=== PATIENT | female | born 1960 | race Caucasian/White ===

== ENCOUNTER 2019-08-19 17:09 | Emergency (ER) | payer OTHER ==
[~2019-08-19] VITALS: Ht 170.2 cm; Wt 63.4 kg
[2019-08-19 17:09] VITALS: BP 152/89
[~2019-08-19 17:09] MED LIST: ALBU2.5V8 IH; BUDE10.2 IH; DEXL60CA2 PO; DIPH1TAB PO; DULO60CA6 PO; ESZO3TAB28 PO; FENO160T PO; FURO80TA3 PO; GABA-586 PO; GLIM2TAB7 PO; IPRA3AMP23 IH; IPRA4AER IH; MONT10TA80 PO; OXYB5TAB10 PO; RIVA20TA2 PO; ROFL500T7 PO; TRAM100T12 PO
--- NOTE | 2019-08-19 17:28 | PHYS DOC ---
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 Patient states her home health nurse told her to come to the emergency department to check and see if this was another blood clot. There is been no chest pain shortness of breath dyspnea on exertion. She does have chronic shortness of breath secondary to excessive tobacco abuse. [] Review of Systems: Review of Systems: Constitutional: Denies fever or chills Eyes: Denies change in visual acuity HENT: Denies nasal congestion or sore throat Respiratory: Denies cough or shortness of breath Cardiovascular: Denies chest pain or edema GI: Denies abdominal pain, nausea, vomiting, bloody stools or diarrhea : Denies dysuria Musculoskeletal: Per HPI Integument: Denies rash Neurologic: Denies headache, focal weakness or sensory changes Endocrine: Denies polyuria or polydipsia Lymphatic: Denies swollen glands Psychiatric: Denies depression or anxiety Heart Score: Risk Factors: Risk Factors: DM, Current or recent (<one month) smoker, HTN, HLP, family history of CAD, obesity. Risk Scores: Score 0 - 3: 2.5% MACE over next 6 weeks - Discharge Home Score 4 - 6: 20.3% MACE over next 6 weeks - Admit for Clinical Observation Score 7 - 10: 72.7% MACE over next 6 weeks - Early Invasive Strategies Allergies: Allergies: Allergies Coded Allergies Type Severity Reaction Last Updated Verified chlorpromazine HCl Allergy Severe Psychotic 04/20/13 Yes Tetracycline Allergy Intermediate Nail beds turned blue 04/20/13 Yes adhesive Allergy Intermediate skin irritation 04/20/13 Yes codeine Allergy Intermediate Nausea/swelling 04/20/13 Yes diazepam Allergy Intermediate increased sleepiness 04/20/13 Yes hydrocodone Allergy Intermediate Nausea/swelling 04/20/13 Yes latex Allergy Intermediate swelling and itching 04/20/13 Yes morphine Allergy Intermediate Lips turned blue/swelling 04/20/13 Yes sumatriptan succinate Allergy Intermediate swelling 04/20/13 Yes Physical Exam: PE: Constitutional: Well developed, well nourished, no acute distress, non-toxic appearance, smells strongly of tobacco smoke. [] HENT: Normocephalic, atraumatic, bilateral external ears normal, oropharynx moist, no oral exudates, nose normal. [] Eyes: PERRLA, EOMI, conjunctiva normal, no discharge. [] Neck: Normal range of motion, no tenderness, supple, no stridor. [] Cardiovascular:Heart rate regular rhythm, no murmur [] Lungs & Thorax: Bilateral breath sounds clear to auscultation [] Abdomen: Bowel sounds normal, soft, no tenderness, no masses, no pulsatile mas ses. [] : She has a Floyd in place Skin: Warm, dry, no erythema, no rash. [] Back: No tenderness, no CVA tenderness. [] Extremities: I do not appreciate any significant swelling in her left lower extremity [] Neurologic: Alert and oriented X 3, normal motor function, normal sensory function, no focal deficits noted. [] Psychologic: Affect normal, judgement normal, mood normal. [] EKG: EKG: [] Radiology/Procedures: Radiology/Procedures: [] Course & Med Decision Making: Course & Med Decision Making Pertinent Labs and Imaging studies reviewed. (See chart for details) [ED course: Evaluation reveals a 58-year-old female with a history of DVT. She is on Xarelto and has an IVC filter in place I explained to her that she is already being treated for DVTs if indeed she had another one. There is no indication to recheck her for such today. I have encouraged her to follow with her primary care physician.] Wicho Disclaimer: Wicho Disclaimer: This electronic medical record was generated, in whole or in part, using a voice recognition dictation system. Departure Departure: Impression: Primary Impression: Swelling of lower extremity Disposition: 01 HOME/RESIDENCE PRIOR TO ADM Condition: STABLE Referrals: KELSEY VAZQUEZ MD (PCP) Patient Instructions: Peripheral Edema Additional Instructions: Follow with your primary care physician this week for recheck. Return to the emergency department with any new or concerning symptoms. Justification of Admission: Justification of Admission: Justification of Admission Dx: No CYNTHIA PEREZ DO Aug 19, 2019 17:28
== END 2019-08-19 17:30 | disposition home or self-care (01) ==
LOC: ER 17:09
DX: R22.42 Localized swelling, mass and lump, left lower limb (principal); Z86.718 Personal history of other venous thrombosis and embolism; Z79.01 Long term (current) use of anticoagulants; Z88.1 Allergy status to other antibiotic agents; Z88.5 Allergy status to narcotic agent; Z88.8 Allergy status to other drugs, medicaments and biological substances; Z91.040 Latex allergy status
CPT/HCPCS: 99281; 99284

== ENCOUNTER 2020-01-25 14:29 | Emergency (ER) | payer OTHER ==
[~2020-01-25] VITALS: Ht 170.2 cm; Wt 63.4 kg
[2020-01-25 15:14] VITALS: BP 115/71
--- NOTE | 2020-01-25 15:20 | PHYS DOC ---
Past History Past Medical History: CHF, COPD, High Cholesterol, Seizure, Vascular Disease Additional Past Medical Histor: DDD, factor 5 Past Surgical History: Cholecystectomy, Hysterectomy Alcohol Use: None Adult General Chief Complaint Chief Complaint: FOOT INJURY PAIN HPI HPI Patient is a 59-year-old female with history of MS, wheelchair-bound, presents to the emergency room for evaluation of right foot and ankle injury. She reports yesterday an elevator door closed on her foot. She does not have much feeling in her lower extremities. She reports noticed more swelling today than normal. Review of Systems Review of Systems Constitutional: Denies fever or chills [] Eyes: Denies change in visual acuity, redness, or eye pain [] HENT: Denies nasal congestion or sore throat [] Respiratory: Denies cough or shortness of breath [] Cardiovascular: No additional information not addressed in HPI [] GI: Denies abdominal pain, nausea, vomiting, bloody stools or diarrhea [] : Denies dysuria or hematuria [] Musculoskeletal:rt ankle and foot swelling[] Integument: Denies rash or skin lesions [] Neurologic: Denies headache, focal weakness or sensory changes [] Endocrine: Denies polyuria or polydipsia [] All other systems were reviewed and found to be within normal limits, except as documented in this note. Allergies Allergies Allergies Coded Allergies Type Severity Reaction Last Updated Verified chlorpromazine HCl Allergy Severe Psychotic 04/20/13 Yes adhesive Allergy Intermediate skin irritation 04/20/13 Yes codeine Allergy Intermediate Nausea/swelling 04/20/13 Yes diazepam Allergy Intermediate increased sleepiness 04/20/13 Yes hydrocodone Allergy Intermediate Nausea/swelling 04/20/13 Yes latex Allergy Intermediate swelling and itching 04/20/13 Yes morphine Allergy Intermediate Lips turned blue/swelling 04/20/13 Yes sumatriptan succinate Allergy Intermediate swelling 04/20/13 Yes tetracycline Allergy Intermediate Nail beds turned blue 04/20/13 Yes Physical Exam Physical Exam Constitutional: Well developed, well nourished, no acute distress, non-toxic appearance. [] HENT: Normocephalic, atraumatic, bilateral external ears normal, oropharynx moist, no oral exudates, nose normal. [] Eyes: PERRLA, EOMI, conjunctiva normal, no discharge. [] Skin: Warm, dry, no erythema. [] Extremities: No tenderness, no cyanosis, no clubbing,rt ankle swollen medially and laterally, minimal swelling to diffuse rt foot, pulses intact. [] Neurologic: Alert and oriented X 3, . [] Psychologic: Affect normal, judgement normal, mood normal. [] EKG EKG [] Radiology/Procedures Radiology/Procedures [] Impressions: PROCEDURE: FOOT RIGHT 3V Right ankle x-rays 3 views HISTORY: Injury, pain after shut in door FINDINGS: Mild calf soft tissue edema. There is marked medial ankle soft tissue swelling. Bony demineralization likely osteoporosis. No fracture evident. No dislocation. The talus ossicle lesion. IMPRESSION: No acute osseous injury of the ankle. Medial ankle soft tissue swelling. Right foot x-rays 3 views HISTORY: Injury, pain after shut in door FINDINGS: Bony demineralization likely osteoporosis. Irregularity at the medial cortex at the base of the great toe proximal phalanx at the MTP joint on the AP and oblique views raising suspicion of an acute traumatic fracture. Dorsal foot soft tissue swelling. No dislocation. IMPRESSION: Suspected acute traumatic nondisplaced fracture at the base of the great toe proximal phalanx. Dorsal foot soft tissue swelling. See above. Electronically signed by: Sreekanth Ibarra MD (01/25/2020 3:55 PM) [facility] [place] Heart Score Risk Factors: Risk Factors: DM, Current or recent (<one month) smoker, HTN, HLP, family history of CAD, obesity. Risk Scores: Risk Factors: DM, Current or recent (<one month) smoker, HTN, HLP, family history of CAD, obesity. Course & Med Decision Making Course & Med Decision Making Pertinent Labs and Imaging studies reviewed. (See chart for details) [pts rt great toe wicho taped to 2nd toe, she is wheelchair bound, will f/u c orthopedic in 5-7 days] Dragon Disclaimer Dragon Disclaimer This electronic medical record was generated, in whole or in part, using a voice recognition dictation system. Departure Departure: Impression: Primary Impression: Fracture of phalanx of toe Condition: GOOD Referrals: RONNELL BOLAÑOS (PCP) MARK OSPINA MD Patient Instructions: Toe Fracture, [id number] Problem Qualifiers Primary Impression: Fracture of phalanx of toe Encounter type: initial encounter Toe: great toe Fracture type: closed Phalanx: proximal Fracture alignment: nondisplaced Laterality: right Qualified Codes: S92.414A - Nondisplaced fracture of proximal phalanx of right great toe, initial encounter for closed fracture NADYA TAFOYA SENIOR ENVIRONMENTAL CONSULTANT Jan 25, 2020 15:20
--- NOTE | 2020-01-25 15:58 | RAD ---
Right ankle x-rays 3 views HISTORY: Injury, pain after shut in door FINDINGS: Mild calf soft tissue edema. There is marked medial ankle soft tissue swelling. Bony demineralization likely osteoporosis. No fracture evident. No dislocation. The talus ossicle lesion. IMPRESSION: No acute osseous injury of the ankle. Medial ankle soft tissue swelling. Right foot x-rays 3 views HISTORY: Injury, pain after shut in door FINDINGS: Bony demineralization likely osteoporosis. Irregularity at the medial cortex at the base of the great toe proximal phalanx at the MTP joint on the AP and oblique views raising suspicion of an acute traumatic fracture. Dorsal foot soft tissue swelling. No dislocation. IMPRESSION: Suspected acute traumatic nondisplaced fracture at the base of the great toe proximal phalanx. Dorsal foot soft tissue swelling. See above. Electronically signed by: Sreekanth Ibarra MD (01/25/2020 3:55 PM) JUSTIN
== END 2020-01-25 16:28 | disposition home or self-care (01) ==
LOC: ER 14:29
DX: S92.414A Nondisplaced fracture of proximal phalanx of right great toe, initial encounter for closed fracture (principal); I50.9 Heart failure, unspecified; J44.9 Chronic obstructive pulmonary disease, unspecified; E78.00 Pure hypercholesterolemia, unspecified; G35 Multiple sclerosis; Z88.8 Allergy status to other drugs, medicaments and biological substances; Z88.5 Allergy status to narcotic agent; Z91.040 Latex allergy status; Z88.1 Allergy status to other antibiotic agents; W23.0XXA Caught, crushed, jammed, or pinched between moving objects, initial encounter; Y93.89 Activity, other specified; Y92.89 Other specified places as the place of occurrence of the external cause; Y99.8 Other external cause status
CPT/HCPCS: 73610; 73630; 99284

== ENCOUNTER 2020-08-03 19:31 | Emergency (ER) | payer OTHER ==
[~2020-08-03] VITALS: Ht 167.6 cm; Wt 68.2 kg
[2020-08-03 19:45] VITALS: BP 111/68
[2020-08-03] MEDS ORDERED: LIDOCAINE 2% 20 ML VIAL. IJ ONE (21:15)
--- NOTE | 2020-08-06 19:13 | PHYS DOC ---
Past History Past Medical History: CHF, COPD, High Cholesterol, Seizure, Vascular Disease Additional Past Medical Histor: DDD, factor 5 Past Surgical History: Cholecystectomy, Hysterectomy Smoking: Cigarettes Alcohol Use: Occasionally General Adult EDM: Chief Complaint: FOOT INJURY PAIN HPI: HPI: ". I had a leg spasms.. and accident kicked bottom of tongue door and cut my big toe on the right.." Patient is a 59 year old female who presents with above history and avulsion type injury to the pad side of the first right toe. Skin flap is avascular. No other injury reported. No pain on loading of bony structures. Patient with questioning procedure there is some deep bleeding. Patient has significant medical history for degenerative joint disease factor V, deconditioning, DDD, neuropathy. Patient normally follows with primary care Dr. Elliott. Patient states her tetanus is current. Review of Systems: Review of Systems: Constitutional: Denies fever or chills Eyes: Denies change in visual acuity HENT: Denies nasal congestion or sore throat Respiratory: Denies cough or shortness of breath Cardiovascular: Denies chest pain or edema GI: Denies abdominal pain, nausea, vomiting, bloody stools or diarrhea : Denies dysuria Musculoskeletal: Denies back pain or joint pain Integument: Denies rash. Patient complains of avulsion laceration to pad of first right toe Neurologic: Denies headache, focal weakness or sensory changes Endocrine: Denies polyuria or polydipsia Lymphatic: Denies swollen glands Psychiatric: Denies depression or anxiety Family History: Family History: Noncontributory to presentation Current Medications: Current Meds: Current Medications Medications (Trade) Dose Ordered Sig/[facility] Start Time Stop Time Status Last Admin Dose Admin Lidocaine HCl 20 ml 1X ONCE 08/03/20 21:15 08/03/20 21:16 DC 08/03/20 21:15 20 ML Allergies: Allergies: Allergies Coded Allergies Type Severity Reaction Last Updated Verified adhesive Allergy Intermediate skin irritation 04/20/13 Yes codeine Allergy Intermediate Nausea/swelling 04/20/13 Yes hydrocodone Allergy Intermediate Nausea/swelling 04/20/13 Yes latex Allergy Intermediate swelling and itching 04/20/13 Yes morphine Allergy Intermediate Lips turned blue/swelling 04/20/13 Yes sumatriptan succinate Allergy Intermediate swelling 04/20/13 Yes chlorpromazine HCl Adverse Reaction Severe Psychotic 08/03/20 Yes diazepam Adverse Reaction Intermediate increased sleepiness 08/03/20 Yes tetracycline Adverse Reaction Intermediate Nail beds turned blue 08/03/20 Yes Physical Exam: PE: Constitutional: Moderate acute distress, non-toxic appearance. [] HENT: Normocephalic, atraumatic, bilateral external ears normal, oropharynx moist, no oral exudates, nose normal. [] Eyes: PERRLA, EOMI, conjunctiva normal, no discharge. [] Neck: Normal range of motion, no tenderness, supple, no stridor. [] Cardiovascular:Heart rate regular rhythm, no murmur [] Lungs & Thorax: Bilateral breath sounds to apex scattered wheezes auscultation [] Abdomen: Bowel sounds normal, soft, no tenderness, no masses, no pulsatile masses. Old surgical scars Skin: Warm, dry, no erythema, no rash. [] Back: No tenderness, no CVA tenderness. [] Extremities: No tenderness, no cyanosis, no clubbing, ROM intact, no edema. [] Injury to right first toe as per HPI Neurologic: Alert and oriented X 3, patient reports no new, focal deficits noted. Tremors and spasms Psychologic: Affect anxious, judgement normal, mood normal. [] Current Patient Data: Vital Signs: Vital Signs Date Time Temp Pulse Resp B/P (MAP) Pulse Ox O2 Delivery O2 Flow Rate FiO2 08/03/20 19:45 97.7 80 18 111/68 (82) 96 Room Air EKG: EKG: [] Radiology/Procedures: Radiology/Procedures: [] Heart Score: C/O Chest Pain: N/A Risk Factors: Risk Factors: DM, Current or recent (<one month) smoker, HTN, HLP, family history of CAD, obesity. Risk Scores: Score 0 - 3: 2.5% MACE over next 6 weeks - Discharge Home Score 4 - 6: 20.3% MACE over next 6 weeks - Admit for Clinical Observation Score 7 - 10: 72.7% MACE over next 6 weeks - Early Invasive Strategies Course & Med Decision Making: Course & Med Decision Making Pertinent Labs and Imaging studies reviewed. (See chart for details) Procedure note- Laceration repair-laceration cleaned with normal saline and Betadine.. The 2 x 2 centimeter avulsion flap right first toe pad is avascular. Skin flap is attached by a very small area of tissue and skin. Irrigated laceration with normal saline. Did a digital block with 2% lidocaine. Reirrigated toe and range of motion. Reattached a vascular flap with a running stitch x6, and 6 simple sutures of 4-0 Vicryl. Total sutures 12. antibiotic ointment with dressing applied. Advised patient will most likely you lose the avascular flap but reattached to help with bleeding control and act as somewhat skin graft to toe. Must monitor closely for infection. Wear only white socks. Keep laceration clean and dry. Follow-up primary care. Return if any concerns. Advised patient sutures do not need to be removed they will dissolve. Impression: 1. 2 x 2 centimeter avulsion laceration to right first toe [] Dragon Disclaimer: Dragon Disclaimer: This electronic medical record was generated, in whole or in part, using a voice recognition dictation system. Departure Departure: Impression: Primary Impression: Avulsion, skin Disposition: HOME / SELF CARE / HOMELESS Condition: GUARDED Patient Instructions: Skin Tear Care, [id number] Additional Instructions: You had avulsion of skin pad of Rt. lst toe. You will most likely have loss of this avascular tissue. It was sutured back on with Vicryl running stitch to cover exposed tissue and aid in hemostasis. Keep area clean and dry. Change dressing 3 days. Wear only white socks. Monitor closely for infection. Sutures do not need to be removed. Dragon Disclaimer This chart was dictated in whole or in part using Voice Recognition software in a busy, high-work load, and often noisy Emergency Department environment. It may contain unintended and wholly unrecognized errors or omissions. MARK GARCIA MD Aug 06, 2020 19:13
== END 2020-08-03 22:43 | disposition home or self-care (01) ==
LOC: ER 19:31
DX: S91.111A Laceration without foreign body of right great toe without damage to nail, initial encounter (principal); J44.9 Chronic obstructive pulmonary disease, unspecified; E78.5 Hyperlipidemia, unspecified; F17.210 Nicotine dependence, cigarettes, uncomplicated; Z90.49 Acquired absence of other specified parts of digestive tract; Z90.710 Acquired absence of both cervix and uterus; W26.8XXA Contact with other sharp object(s), not elsewhere classified, initial encounter; Y93.89 Activity, other specified; Y92.89 Other specified places as the place of occurrence of the external cause; Y99.8 Other external cause status
CPT/HCPCS: 12002; 99282; J2001; 99283-25

== ENCOUNTER 2020-09-25 23:07 | Emergency (ER) | payer OTHER ==
[~2020-09-25] VITALS: Ht 167.6 cm; Wt 68.2 kg
[2020-09-25 23:12] VITALS: BP 114/73
--- NOTE | 2020-09-25 23:22 | PHYS DOC ---
Past History Past Medical History: CHF, COPD, High Cholesterol, Seizure, Vascular Disease Additional Past Medical Histor: DDD, factor 5 Past Surgical History: Cholecystectomy, Hysterectomy Smoking: Cigarettes Alcohol Use: Occasionally General Adult EDM: Chief Complaint: TOE PROBLEM HPI: HPI: " I caught the door on my Rt toes yesterday... and I did the same thing today on my Lt toe.. big toe... ".. Patient is a 60 year old female who presents with above hx and complaints of injury to toes bilateral. Has contusion, abrasion, laceration to toes on both feet by same mechanism of injury. Pt. has advises that injury occurs when she is pushing open the door to her apartment. Patient's toes on the left foot toes injuried tonight. Toes on Rt. foot injury occured yesterday. Pt. does not remember last tetanus vaccination. The patient has significant history for MS. Patient also had a episodes of periodic diarrhea, nausea, vomiting, COPD exacerbation, bronchitis, urinary retention which was treated with a suprapubic catheter. Patient has history of hyperlipidemia, chronic pain, fibromyalgia, tobacco abuse, and deconditioning. Review of Systems: Review of Systems: Constitutional: Denies fever or chills Eyes: Denies change in visual acuity HENT: Denies nasal congestion or sore throat Respiratory: Denies cough or shortness of breath Cardiovascular: Denies chest pain or edema GI: Denies abdominal pain, nausea, vomiting, bloody stools or diarrhea : Denies dysuria Musculoskeletal: Denies back pain or joint pain Integument: Complains of bilateral toe abrasions and lacerations Neurologic: Denies headache, focal weakness or sensory changes Endocrine: Denies polyuria or polydipsia Lymphatic: Denies swollen glands Psychiatric: Denies depression or anxiety Family History: Family History: Noncontributory to presentation Current Medications: Current Meds: See nursing for home meds Allergies: Allergies: Allergies Coded Allergies Type Severity Reaction Last Updated Verified adhesive Allergy Intermediate skin irritation 04/20/13 Yes codeine Allergy Intermediate Nausea/swelling 04/20/13 Yes hydrocodone Allergy Intermediate Nausea/swelling 04/20/13 Yes latex Allergy Intermediate swelling and itching 04/20/13 Yes morphine Allergy Intermediate Lips turned blue/swelling 04/20/13 Yes sumatriptan succinate Allergy Intermediate swelling 04/20/13 Yes chlorpromazine HCl Adverse Reaction Severe Psychotic 08/03/20 Yes diazepam Adverse Reaction Intermediate increased sleepiness 08/03/20 Yes tetracycline Adverse Reaction Intermediate Nail beds turned blue 08/03/20 Yes Physical Exam: PE: Constitutional: no acute distress, non-toxic appearance. [] HENT: Normocephalic, atraumatic, bilateral external ears normal, oropharynx moist, no oral exudates, nose normal. [] Eyes: PERRLA, EOMI, conjunctiva normal, no discharge. [] Neck: Normal range of motion, no tenderness, supple, no stridor. [] Cardiovascular:Heart rate regular rhythm, no murmur [] Lungs & Thorax: Bilateral breath sounds equal with scattered wheezing throughout auscultation [] Abdomen: Bowel sounds normal, soft, no tenderness, no masses, no pulsatile masses. Midline scar. Suprapubic catheter. Skin: Warm, dry, no erythema, no rash. Abrasions and lacerations toes on right and left foot. Has oncotic nails. Back: No tenderness, no CVA tenderness. [] Extremities: Toe abrasions and tenderness, bilateral leg weakness due to MS, no cyanosis, no clubbing, ROM intact, no edema. [] Neurologic: Alert and oriented X 3, normal motor function, normal sensory function, no focal deficits noted. [] Psychologic: Affect anxious l, judgement normal, mood normal. [] Current Patient Data: Vital Signs: Vital Signs Date Time Temp Pulse Resp B/P (MAP) Pulse Ox O2 Delivery O2 Flow Rate FiO2 09/25/20 23:12 98.6 71 16 114/73 99 Room Air EKG: EKG: [] Radiology/Procedures: Radiology/Procedures: [] Heart Score: C/O Chest Pain: N/A Risk Factors: Risk Factors: DM, Current or recent (<one month) smoker, HTN, HLP, family history of CAD, obesity. Risk Scores: Score 0 - 3: 2.5% MACE over next 6 weeks - Discharge Home Score 4 - 6: 20.3% MACE over next 6 weeks - Admit for Clinical Observation Score 7 - 10: 72.7% MACE over next 6 weeks - Early Invasive Strategies Course & Med Decision Making: Course & Med Decision Making Pertinent Labs and Imaging studies reviewed. (See chart for details) Patient do salt water soaks 4 times a day to toes may also use Epson salt water soaks. After the soaks apply Polysporin 4 times a day massage into the wound. Wear only white socks until lesions healed. Wear shoes that cover toes. You may lose the toenail on lst toe Lt. . Follow-up primary care. Return if any concerns. Take Bactrim DS twice a day. Impression: 1. Abrasions and laceration to toes. 2. Hx. MS 3. Tobacco Abuse Dragbrissa Disclaimer: Dragbrissa Disclaimer: This electronic medical record was generated, in whole or in part, using a voice recognition dictation system. Departure Departure: Referrals: RONNELL BOLAÑOS (PCP) [place]o Disclaimer This chart was dictated in whole or in part using Voice Recognition software in a busy, high-work load, and often noisy Emergency Department environment. It may contain unintended and wholly unrecognized errors or omissions. Dragon Disclaimer This chart was dictated in whole or in part using Voice Recognition software in a busy, high-work load, and often noisy Emergency Department environment. It may contain unintended and wholly unrecognized errors or omissions. MARK GARCIA MD Sep 25, 2020 23:22
[2020-09-25] MEDS ORDERED: BACITRACIN ZINC TOPICAL OINT PACKET. TP ONE ×2 (23:27→23:30)
[2020-09-25] MEDS ORDERED: DIPH,PERTUSS(ACELL),TET VAC/PF 0.5 ML SYRINGE. VAX IM ONE ×2 (23:27→23:30)
[2020-09-25] MEDS ORDERED: SMZ/TMP 800/160MG TABLET. PO ONE ×2 (23:27→23:30)
[2020-09-25] MEDS ORDERED: ACETAMINOPHEN 500 MG TABLET PO ONE (23:30)
== END 2020-09-25 23:50 | disposition home or self-care (01) ==
LOC: ER 23:07
DX: S91.114A Laceration without foreign body of right lesser toe(s) without damage to nail, initial encounter (principal); S91.112A Laceration without foreign body of left great toe without damage to nail, initial encounter; G35 Multiple sclerosis; I50.9 Heart failure, unspecified; J44.9 Chronic obstructive pulmonary disease, unspecified; E78.00 Pure hypercholesterolemia, unspecified; G89.29 Other chronic pain; E78.5 Hyperlipidemia, unspecified; M79.7 Fibromyalgia; F17.210 Nicotine dependence, cigarettes, uncomplicated; Z88.8 Allergy status to other drugs, medicaments and biological substances; Z88.5 Allergy status to narcotic agent; Z91.040 Latex allergy status; Z88.1 Allergy status to other antibiotic agents; W23.0XXA Caught, crushed, jammed, or pinched between moving objects, initial encounter; Y93.89 Activity, other specified; Y92.89 Other specified places as the place of occurrence of the external cause; Y99.8 Other external cause status
CPT/HCPCS: 90471; 90715; 99283

== ENCOUNTER 2020-11-13 16:54 | Emergency (ER) | payer OTHER ==
[~2020-11-13] VITALS: Ht 167.6 cm; Wt 68.2 kg
--- NOTE | 2020-11-13 17:12 | PHYS DOC ---
Past History Past Medical History: CHF, COPD, High Cholesterol, Seizure, Vascular Disease Additional Past Medical Histor: DDD, factor 5 Past Surgical History: Cholecystectomy, Hysterectomy Smoking: Cigarettes Alcohol Use: Occasionally Adult General Chief Complaint Chief Complaint: NAUSEA/VOMITING/DIARRHEA HPI HPI Patient is a 60-year-old female presenting via EMS for bradycardia. Patient reports waking up today and being nauseous with several episodes of looser stools than usual, states they have been more loose in consistency, a total of x4 episodes today without recent antibiotic use or other concerning factors or exposures. States her home physical therapist came over for continued outpatient care due to her underlying multiple sclerosis and chronic deconditioning when checking vital signs, he noticed patient's heart rate was markedly lower than usual for patient. These, in addition of associated symptoms of lightheadedness, dizziness, shortness of breath, nausea and episodes of looser stools than usual concerned provider and prompted EMS to be called. On arrival to patient's house, patient's average heart rate was approximately 45 bpm otherwise patient was hemodynamically stable and subsequently transported to our facility for evaluation. Of note, she did receive x1 [employer] and [employer] COVID-19 vaccine Review of Systems Review of Systems Fourteen body systems of review of systems have been reviewed. See HPI for pertinent positives and negative responses, other martinez all other systems are negative, non-pertinent or non-contributory Allergies Allergies Allergies Coded Allergies Type Severity Reaction Last Updated Verified adhesive Allergy Intermediate skin irritation 04/20/13 Yes codeine Allergy Intermediate Nausea/swelling 04/20/13 Yes hydrocodone Allergy Intermediate Nausea/swelling 04/20/13 Yes latex Allergy Intermediate swelling and itching 04/20/13 Yes morphine Allergy Intermediate Lips turned blue/swelling 04/20/13 Yes sumatriptan succinate Allergy Intermediate swelling 04/20/13 Yes chlorpromazine HCl Adverse Reaction Severe Psychotic 08/03/20 Yes diazepam Adverse Reaction Intermediate increased sleepiness 08/03/20 Yes tetracycline Adverse Reaction Intermediate Nail beds turned blue 08/03/20 Yes Physical Exam Physical Exam Constitutional: Appears in no acute distress, age-appropriate, appears chronically debilitated HENT: Normocephalic, atraumatic, bilateral external ears normal, oropharynx dry, no oral exudates, nose normal. Eyes: PERRLA, EOMI, conjunctiva normal, no discharge. Neck: Normal range of motion, no tenderness, supple, no stridor. Cardiovascular: Heart rate bradycardic, irregular rhythm, no murmurs rubs or gallops Lungs & Thorax: Bilateral breath sounds clear to auscultation Abdomen: Bowel sounds normal, soft, no tenderness, no masses, no pulsatile masses. Patient has numerous well-healed incisions over her abdomen with right- sided baclofen pump present. Nonsurgical abdomen, no peritoneal signs. Well- appearing chronic indwelling suprapubic catheter Skin: Warm, dry, no erythema, no rash. There is several areas of skin breakdown on posterior sacral area which is chronic per patient and [id number] who is primary caregiver. Back: No tenderness, no CVA tenderness. Extremities: No tenderness, no cyanosis, no clubbing, ROM intact, no edema. Neurologic: Alert and oriented X 3, normal motor & sensory function at baseline for patient with decreased mobility and muscle strength of bilateral lower extremities, no focal deficits noted. Psychologic: Affect normal, judgement normal, mood normal. Psychomotor retardation from multiple sclerosis at baseline per patient Current Patient Data Vital Signs Vital Signs Date Time Temp Pulse Resp B/P (MAP) Pulse Ox O2 Delivery O2 Flow Rate FiO2 11/13/20 17:00 98.5 43 16 113/69 98 Room Air 11/13/20 17:54 3.0 Vital Signs Date Time Temp Pulse Resp B/P (MAP) Pulse Ox O2 Delivery O2 Flow Rate FiO2 11/13/20 17:54 43 28 109/38 (61) 98 Nasal Cannula 3.0 11/13/20 17:00 98.5 Lab Results Laboratory Tests Test 11/13/20 17:11 White Blood Count 10.7 x10^3/uL Red Blood Count 4.12 x10^6/uL Hemoglobin 12.9 g/dL Hematocrit 38.3 % Mean Corpuscular Volume 93 fL Mean Corpuscular Hemoglobin 31 pg Mean Corpuscular Hemoglobin Concent 34 g/dL Red Cell Distribution Width 13.9 % Platelet Count 441 x10^3/uL Neutrophils (%) (Auto) 56 % Lymphocytes (%) (Auto) 31 % Monocytes (%) (Auto) 8 % Eosinophils (%) (Auto) 4 % Basophils (%) (Auto) 1 % Neutrophils # (Auto) 6.0 x10^3uL Lymphocytes # (Auto) 3.3 x10^3/uL Monocytes # (Auto) 0.9 x10^3/uL Eosinophils # (Auto) 0.4 x10^3/uL Basophils # (Auto) 0.1 x10^3/uL Prothrombin Time 11.0 SEC Prothromb Time International Ratio 1.1 Activated Partial Thromboplast Time 27 SEC Sodium Level 137 mmol/L Potassium Level 3.4 mmol/L Chloride Level 99 mmol/L Carbon Dioxide Level 29 mmol/L Anion Gap 9 Blood Urea Nitrogen 18 mg/dL Creatinine 0.8 mg/dL Estimated GFR (Cockcroft-Gault) 72.7 BUN/Creatinine Ratio 23 Glucose Level 123 mg/dL Calcium Level 9.0 mg/dL Magnesium Level 2.1 mg/dL Total Bilirubin 0.4 mg/dL Aspartate Amino Transf (AST/SGOT) 20 U/L Alanine Aminotransferase (ALT/SGPT) 20 U/L Alkaline Phosphatase 62 U/L Creatine Kinase 155 U/L Troponin I Quantitative < 0.017 ng/mL QT-Cef-T-Type Natriuretic Peptide 539 pg/mL Total Protein 7.0 g/dL Albumin 3.7 g/dL Albumin/Globulin Ratio 1.1 Urine Opiates Screen Neg Urine Methadone Screen Neg Urine Barbiturates Neg Urine Phencyclidine Screen Neg Urine Amphetamine/Methamphetamine Neg Urine Benzodiazepines Screen Neg Urine Cocaine Screen Neg Urine Cannabinoids Screen Pos Urine Ethyl Alcohol Neg EKG EKG EKG ordered and interpreted by myself at 1716 hrs. as third-degree heart block with average computed rate of 45 bpm, prolonged QRS at 144, no axis deviation, no STEMI Repeat EKG ordered and interpreted by myself at 1747 hrs. as Radiology/Procedures Radiology/Procedures Exam: Chest one view INDICATION: Shortness of breath TECHNIQUE: Frontal view of the chest Comparisons: None FINDINGS: The cardiomediastinal silhouette and pulmonary vessels are within normal limits. The lung and pleural spaces are clear. IMPRESSION: No acute cardiopulmonary process. Electronically signed by: Osmar Cavazos MD (11/13/2020 6:00 PM) [facility] Heart Score C/O Chest Pain: No HEART Score for Chest Pain: HEART Score for Chest Pain Response (Comments) Value History Moderately Suspicious 1 ECG Nonspecific Repolarizatio 1 Age >45 - < 65 1 Risk Factors >3 Risk Factors or Hx CAD 2 Troponin < Normal Limit 0 Total 5 Risk Factors: Risk Factors: DM, Current or recent (<one month) smoker, HTN, HLP, family history of CAD, obesity. Risk Scores: Risk Factors: DM, Current or recent (<one month) smoker, HTN, HLP, family history of CAD, obesity. Course & Med Decision Making Course & Med Decision Making Airway patent, breathing unlabored, IV access and vitals obtained concerning for irregularly irregular bradycardic rhythm HPI, physical examination and comprehensive ER work-up concerning for third- degree heart block. Initial EKG discussed with on-call fiber optic assembly worker at [facility] who confirmed. Given patient AOx3, well-appearing and hemodynamically stable, treatment deferred Transcutaneous pacing pads placed. I discussed need for hospital transfer with patient and she was amenable. She requested [facility] transfer given that she is seen by their neurology team for her multiple sclerosis. [facility] contacted and case reviewed, they accepted patient under their care Patient notified of transfer acceptance above to [facility] and remained amenable. Remained AAO x3 and hemodynamically stable with heart rate ~40-55 bpm. At this point in care, no indication for any aggressive intervention. At this time in care my shift is ending Comprehensive patient sign off given to oncoming physician who is aware of patient's excepted stay at [facility] and pending EMS transfer. Please defer to this note and their documentation regarding future care of patient while in our ER if needed Critical Care Time This patient required critical care. Due to the fact that the patient required a significant amount of one on one physician - patient contact time, ordering and review of studies, arranging urgent treatment with development of a management plan, evaluation of patients response to treatment with frequent reassessments, and discussions with other providers this patient required 30 minutes of critical care time. Critical care time was indicated due to the inherent instability and/or potential for instability in this patient. The critical care time that is allocated to this patient is above and beyond any time spent on any other billable procedures performed on this patient. Dragon Disclaimer Dragon Disclaimer This electronic medical record was generated, in whole or in part, using a voice recognition dictation system. Departure Departure: Impression: Primary Impression: Third degree heart block Additional Impressions: Multiple sclerosis Decreased mobility and endurance Skin ulcer of back, limited to breakdown of skin Disposition: 02 SHORT TERM [facility] ([facility]) Admitting Physician: Other (DR PADRON) Condition: GUARDED Referrals: RONNELL BOLAÑOS (PCP) Problem Qualifiers JOAN MINOR DO Nov 13, 2020 17:12
--- NOTE | 2020-11-13 17:19 | EKG ---
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
[2020-11-13 17:31] LABS: BASO # 0.1 x10^3/uL (0.0-0.2); BASO % 1 % (0-3); EOS # 0.4 x10^3/uL (0.0-0.7); EOS % 4 % (0-3); HEMATOCRIT 38.3 % (36.0-47.0); HEMOGLOBIN 12.9 g/dL (12.0-15.5); LYMPH # 3.3 x10^3/uL (1.0-4.8); LYMPH % 31 % (24-48); MEAN CORPUSCULAR HEMOGLOBIN 31 pg (25-35); MEAN CORPUSCULAR HGB CONC 34 g/dL (31-37); MEAN CORPUSCULAR VOLUME 93 fL (79-100); MONO # 0.9 x10^3/uL (0.0-1.1); MONO % 8 % (0-9); NEUT % 56 % (31-73); PLATELET COUNT 441 x10^3/uL (140-400); RED BLOOD COUNT 4.12 x10^6/uL (3.50-5.40); RED CELL DISTRIBUTION WIDTH 13.9 % (11.5-14.5); WHITE BLOOD COUNT 10.7 x10^3/uL (4.0-11.0)
[2020-11-13 17:40] LABS: CREATININE 0.8 mg/dL (0.6-1.0); GFR 72.7; POTASSIUM 3.4 mmol/L (3.5-5.1)
[2020-11-13 17:45] LABS: BARBITURATES NEG (NEG); BENZODIAZEPINES NEG (NEG); CANNABINOIDS POS (NEG); COCAINE NEG (NEG); METHADONE NEG (NEG); OPIATES NEG (NEG); PHENCYCLIDINE NEG (NEG)
[2020-11-13 17:47] LABS: AMPHETAMINE/METHAMPHETAMINE NEG (NEG)
[2020-11-13 17:52] LABS: ALBUMIN 3.7 g/dL (3.4-5.0); ALBUMIN/GLOBULIN RATIO 1.1 (1.0-1.7); MAGNESIUM 2.1 mg/dL (1.8-2.4); TOTAL BILIRUBIN 0.4 mg/dL (0.2-1.0)
--- NOTE | 2020-11-13 18:03 | RAD ---
Exam: Chest one view INDICATION: Shortness of breath TECHNIQUE: Frontal view of the chest Comparisons: None FINDINGS: The cardiomediastinal silhouette and pulmonary vessels are within normal limits. The lung and pleural spaces are clear. IMPRESSION: No acute cardiopulmonary process. Electronically signed by: Osmar Cavazos MD (11/13/2020 6:00 PM) [facility]
[2020-11-13] MEDS: IV RINGERS SOLUTION,LACTATED 1,000 ML IV ONE (18:45)
[2020-11-13 20:57] VITALS: BP 132/65
--- NOTE | 2020-11-14 03:12 | EKG ---
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
== END 2020-11-13 20:57 | disposition short-term general hospital (02) ==
LOC: ER 16:54
DX: I44.2 Atrioventricular block, complete (principal); G35 Multiple sclerosis; L98.421 Non-pressure chronic ulcer of back limited to breakdown of skin; J44.9 Chronic obstructive pulmonary disease, unspecified; F17.210 Nicotine dependence, cigarettes, uncomplicated; E78.5 Hyperlipidemia, unspecified; Z88.5 Allergy status to narcotic agent; Z91.040 Latex allergy status; Z90.49 Acquired absence of other specified parts of digestive tract; Z90.710 Acquired absence of both cervix and uterus
CPT/HCPCS: 36415; 71045; 80053; 80307; 82550; 83735; 83880; 84443; 84484; 85025; 85610; 85730; 93005; 96360; 99291; J7120

== ENCOUNTER 2020-12-28 17:03 | Emergency (ER) | payer OTHER ==
[~2020-12-28] VITALS: Ht 162.6 cm; Wt 70.3 kg
[~2020-12-28 17:03] MED LIST changes: -DULO60CA6 PO; +DULO60CA7 PO
--- NOTE | 2020-12-28 17:45 | EKG ---
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
[2020-12-28 17:50] LABS: BASO # 0.1 x10^3/uL (0.0-0.2); BASO % 1 % (0-3); EOS # 0.3 x10^3/uL (0.0-0.7); EOS % 2 % (0-3); HEMATOCRIT 36.1 % (36.0-47.0); HEMOGLOBIN 11.8 g/dL (12.0-15.5); LYMPH # 3.5 x10^3/uL (1.0-4.8); LYMPH % 32 % (24-48); MEAN CORPUSCULAR HEMOGLOBIN 31 pg (25-35); MEAN CORPUSCULAR HGB CONC 33 g/dL (31-37); MEAN CORPUSCULAR VOLUME 94 fL (79-100); MONO # 0.8 x10^3/uL (0.0-1.1); MONO % 7 % (0-9); NEUT # 6.4 x10^3uL (1.8-7.7); NEUT % 58 % (31-73); PLATELET COUNT 500 x10^3/uL (140-400); RED BLOOD COUNT 3.82 x10^6/uL (3.50-5.40); RED CELL DISTRIBUTION WIDTH 14.9 % (11.5-14.5); WHITE BLOOD COUNT 11.1 x10^3/uL (4.0-11.0)
--- NOTE | 2020-12-28 17:50 | PHYS DOC ---
Past History Past Medical History: CHF, COPD, High Cholesterol, Seizure, Vascular Disease Additional Past Medical Histor: DDD, factor 5, MS (WHIT GIPSON APRN) Past Surgical History: No Surgical History Additional Past Surgical Histo: Cath. Medication pump lower rigth abd. (WHIT GIPSON APRN) Smoking: Cigarettes Alcohol Use: Occasionally (WHIT GIPSON APRN) Adult General Chief Complaint Chief Complaint: CHEST PAIN HPI HPI Patient is a 60-year-old female presents to the emergency department complaining of chest pain this morning when she woke up that she rates an 8 out of 10. Patient states that the pain is not gone away, does not radiate, feels a little nauseated, has no vomiting or diarrhea. Patient states she does have a indwelli ng urinary catheter denies urinary tract infection type signs and symptoms, patient reports she has catheter related to MS problems. Patient denies cough, chest congestion or nasal congestion, denies recent fever or chills. Patient denies other physical complaints or physical concerns. (WHIT GIPSON APRN) Review of Systems Review of Systems 14 body systems of review of systems have been reviewed. See HPI for pertinent positives and negative responses, otherwise all other systems are negative, nonpertinent or noncontributory. Constitutional: Negative except as outlined in HPI above. Skin: Negative except as outlined in HPI above. Eyes: Negative except as outlined in HPI above. HENT: Negative except as outlined in HPI above. Respiratory: Negative except as outlined in HPI above. Cardiovascular: Negative except as outlined in HPI above. GI: Negative except as outlined in HPI above. : Negative except as outlined in HPI above. Musculoskeletal: Negative except as outlined in HPI above. Integument: Negative except as outlined in HPI above. Neurologic: Negative except as outlined in HPI above. Endocrine: Negative except as outlined in HPI above. Lymphatic: Negative except as outlined in HPI above. Psychiatric: Negative except as outlined in HPI above. (WHIT GIPSON APRN) Current Medications Current Medications Patient reports taking Tylenol 3 25 mg albuterol HFA as needed albuterol nebulizer as needed ammonium lactate 12% lotion atorvastatin 40 mg tablet, baclofen to 60 mcg daily, Symbicort, CBD oil, Celebrex 200 mg, clonazepam 0.5 mg, Combivent MDI, Cymbalta 60 mg, Roflumilast 500 mcg, fenofibrate 160 mg, Flonase nasal spray, Lasix 80 mg daily, gabapentin 600 mg 3 times a day, Levsin 0.125 mg, Keppra 500 mg, Imodium 2 mg, Singulair 10 mg tablet, Baudilio Lenin 50 mg, Macrobid 100 mg, Zyprexa 5 mg, Zofran 4 mg, Ditropan 5 mg, 3 L O2 nightly, Inderal 40 mg, propylene glycol ophthalmic, tramadol 50 mg, Xarelto 20 mg, Current Medications Medications (Trade) Dose Ordered Sig/Rekha Start Time Stop Time Status Last Admin Dose Admin Multi-Ingredient Mouthwash/Gargle (Gi Cocktail) 20 ml 1X ONCE 12/28/20 17:45 12/28/20 17:46 UNV Ondansetron HCl (Zofran) 4 mg 1X ONCE 12/28/20 17:45 12/28/20 17:46 UNV (WHIT GIPSON APRN) Allergies Allergies Allergies Coded Allergies Type Severity Reaction Last Updated Verified adhesive Allergy Intermediate skin irritation 04/20/13 Yes codeine Allergy Intermediate Nausea/swelling 04/20/13 Yes hydrocodone Allergy Intermediate Nausea/swelling 04/20/13 Yes latex Allergy Intermediate swelling and itching 04/20/13 Yes morphine Allergy Intermediate Lips turned blue/swelling 04/20/13 Yes sumatriptan succinate Allergy Intermediate swelling 04/20/13 Yes chlorpromazine HCl Adverse Reaction Severe Psychotic 08/03/20 Yes diazepam Adverse Reaction Intermediate increased sleepiness 08/03/20 Yes tetracycline Adverse Reaction Intermediate Nail beds turned blue 08/03/20 Yes (WHIT GIPSON APRN) Physical Exam Physical Exam Constitutional: Well developed, well nourished, no acute distress, non-toxic appearance. 60-year-old female in no apparent distress. HENT: Normocephalic, atraumatic. Eyes: Conjunctiva normal, no discharge. Neck: Normal range of motion, no stridor. Cardiovascular: No cyanosis appreciated, distal cap refill less than 2 seconds. Heart sounds S1-S2 to auscultation. Lungs & Thorax: Patient is in no respiratory distress, no audible adventitious lung sounds appreciated. Lung sounds clear to auscultate all lung saucedo, no pain to palpation of the anterior thorax. Normal work of breathing. Abdomen: No masses appreciated, no skin discoloration or bruising of the abdomen appreciated, mild pain to palpation epigastric area. Skin: Warm, dry, no erythema, no rash. Back: No tenderness, no deformities. Extremities: No tenderness, no cyanosis, no clubbing, ROM intact, no edema. Limited range of motion of lower extremities related to patient is wheelchair- bound, has indwelling Floyd. Neurologic: Alert and oriented X 3, normal motor function, normal sensory function, no focal deficits noted. Psychologic: Affect normal, judgement normal, mood normal. (WHIT GIPSON APRN) Current Patient Data Vital Signs Vital Signs Date Time Temp Pulse Resp B/P (MAP) Pulse Ox O2 Delivery O2 Flow Rate FiO2 12/28/20 17:18 98.5 95 20 128/66 (86) 95 Room Air (WHIT GIPSON APRN) EKG EKG EKG performed at 1709 by ED nursing staff shows a normal sinus rhythm with left axis deviation, heart rate 73 bpm, OK interval 0.144, QTc interval 0.487, no acu te STEMI, no ACS, no acute ischemia appreciated, EKG interpreted by ED attending physician Dr. Juarez. (WHIT GIPSON APRN) Radiology/Procedures Radiology/Procedures [] (WHIT GIPSON APRN) Heart Score C/O Chest Pain: Yes HEART Score for Chest Pain: HEART Score for Chest Pain Response (Comments) Value History Slighlty/Non-Suspicious 0 ECG Normal 0 Age >45 - < 65 1 Risk Factors 1 or 2 Risk Factors 1 Troponin < Normal Limit 0 Total 2 Risk Factors: Risk Factors: DM, Current or recent (<one month) smoker, HTN, HLP, family history of CAD, obesity. Risk Scores: Risk Factors: DM, Current or recent (<one month) smoker, HTN, HLP, family history of CAD, obesity. (WHIT GIPSON APRN) Course & Med Decision Making Course & Med Decision Making Pertinent Labs and Imaging studies reviewed. (See chart for details) 60-year-old female, vital signs reviewed, resents emergency department concer tamara chest pain all day. Patient's physical examination consistent with dyspepsia. However with patient's complaint of chest pain will order cardiorespiratory work-up, will give GI cocktail. Patient does have indwelling urinary catheter, will send for urinalysis assay as patient states she often gets urinary tract infections. Patient's chest x-ray, EKG, cardiac lab work unremarkable for cardiorespiratory process. Patient was given GI cocktail pending labs, patient reports complete pain relief. Patient's urinalysis assay does show urinary tract infection, discussed with patient will start on Levaquin regimen. Discussed with patient suspicion for dyspepsia, patient reports she did eat late last night, agrees with dyspepsia diagnosis. Discussed with patient strict follow-up with primary care soon, return to ER precautions and concerns. Discussed with the patient all findings and diagnostic testing as well as the need to follow-up with their primary care provider for further evaluation and treatment or return to the ED if any new or worsening symptoms. Strict return precautions were also discussed at length, the patient voiced understanding and agreement with the discharge planning. The patient was nontoxic in appearance, in no apparent distress, and hemodynamically stable at the time of disposition. (WHIT GIPSON APRN) Dragon Disclaimer Dragon Disclaimer This electronic medical record was generated, in whole or in part, using a voice recognition dictation system. (WHIT GIPSON APRN) Departure Departure: Impression: Primary Impression: Dyspepsia Additional Impression: Urinary tract infection Disposition: HOME / SELF CARE / HOMELESS Condition: GOOD Referrals: RONNELL BOLAÑOS (PCP) Patient Instructions: Urinary Tract Infection Additional Instructions: You were seen today in the emergency department for chest pain, your cardiorespiratory work-up was not concerning for heart or lung problems. You were given a GI cocktail for suspicion of acid indigestion. This relieved your pain. A urinalysis assay was also sent, you do have a urinary tract infection. As we discussed I am starting you on Levaquin for an antibiotic. Please take as directed. Follow-up with your primary care physician Dr. Denise lutz for reevaluation of symptoms. Return to the emergency department for worsening symptoms other concerns thank you for visiting our Emergency Department. It was a pleasure taking care of you today in the emergency department and we appreciate you trusting us with your care. If any additional problems come up don't hesitate to return to visit us. Please follow up with your primary care provider so they can plan additional care if needed and know about the problem that you had. If symptoms worsen come back to the Emergency Department. Any concerning symptoms that start such as chest pain, shortness of air, weakness or numbness on one side of the body, running high fevers or any other concerning symptoms return to the ER. EMERGENCY DEPARTMENT GENERAL DISCHARGE INSTRUCTIONS Thank you for coming to [facility] (ED) today and trusting us with you care. We trust that you had a positivie experience in our Emergency Department. If you wish to speak to the department management, you may call the director at [phone]. YOUR FOLLOW UP INSTRUCTIONS ARE FOLLOWS: 1. Do you have a private Doctor? If you do not have a private doctor, please ask for a resource list of physicians or clinics that may be able to assist you with follow up care. 2. The Emergency Physician has interpreted your x-rays. The X-Ray specialist will also review them. If there is a change in the findings, you will be notified in 48 hours when at all possible. 3. A lab test or culture has been done, your results will be reviewed and you will be notified if you need a change in treatment. ADDITIONAL INSTRUCTIONS AND INFORMATION: 1. Your care today has been supervised by a physician who is specially trained in emergency care. Many problems require more than one evaluation for a complete diagnosis and treatment. We recommend that you schedule your follow up appointment as recommended to ensure complete treatment of you illness or injury. If you are unable to obtain follow up care and continue to have a problem, or if your condition worsens, we recommend that you return to the ED. 2. We are not able to safely determine your condition over the phone nor are we able to give sound medical advice over the phone. For these safety reasons, if you call for medical advice we will ask you to come to the ED for further evaluation. 3. If you have any questions regarding these discharge instructions please call the ED at [phone]. SAFETY INFORMATION: In the interest of safety, wellness, and injury prevention; we encourage you to wear your sealbelt, if you smoke; quite smoking, and we encourage family to use a protective helmet for bicycling and other sporting events that present an increased risk for head injury. IF YOUR SYMPTOMS WORSEN OR NEW SYMPTOMS DEVELOP, OR YOU HAVE CONCERNS ABOUT YOUR CONDITION; OR IF YOUR CONDITION WORSENS WHILE YOU ARE WAITING FOR YOUR FOLLOW UP APPOINTMENT; EITHER CONTACT YOUR PRIMARY CARE DOCTOR, THE PHYSICIAN WHOSE NAME AND NUMBER YOU WERE GIVEN, OR RETURN TO THE ED IMMEDIATELY. Scripts Levofloxacin (LEVOFLOXACIN) 750 Mg Tablet 1 TAB PO DAILY for urinary tract infection, #5 TAB 0 Refills Prov: WHIT GIPSON APRN 12/28/20 Attending Signature Attending Signature I have participated in the care of this patient and I have reviewed and agree with all pertinent clinical information above including history, exam, and recommendations. (MARK GARCIA MD) Problem Qualifiers Additional Impression: Urinary tract infection Urinary tract infection type: site unspecified Hematuria presence: with hematuria Qualified Codes: N39.0 - Urinary tract infection, site not specified; R31.9 - Hematuria, unspecified WHIT GIPSON APRN Dec 28, 2020 17:50 MARK GARCIA MD Dec 29, 2020 03:04
[2020-12-28 17:58] LABS: CALCIUM 9.2 mg/dL (8.5-10.1); GFR 56.2; POTASSIUM 3.4 mmol/L (3.5-5.1)
[2020-12-28] MEDS ORDERED: LIDO:MAALOX 1:1 20 ML SINGLE DOSE. PO ONE (18:00)
[2020-12-28] MEDS ORDERED: ONDANSETRON PF 4 MG/2 ML VIAL. IVP ONE (18:00)
--- NOTE | 2020-12-28 18:00 | RAD ---
AP chest. HISTORY: Chest pain AP view was taken of the chest. There is a right pacemaker with atrial and regular pacing leads. Lung s are free of acute infiltrates. Heart is normal in size. There is no effusion. IMPRESSION: 1. No acute infiltrates. Electronically signed by: Donato Esteban MD (12/28/2020 5:58 PM) [facility]
[2020-12-28 18:15] LABS: ALBUMIN 3.7 g/dL (3.4-5.0); ALBUMIN/GLOBULIN RATIO 0.9 (1.0-1.7); TOTAL BILIRUBIN 0.2 mg/dL (0.2-1.0); TOTAL PROTEIN 7.9 g/dL (6.4-8.2)
[2020-12-28 20:00] LABS: BILIRUBIN,URINE NEG (NEG); COLOR,URINE YELLOW; GLUCOSE,URINE NEG (NEG)
[2020-12-28 20:01] LABS: BACTERIA,URINE MANY /HPF (0-FEW); CLARITY,URINE CLOUDY; NITRITE,URINE POS (NEG); SQUAMOUS EPITHELIAL CELL,UR MOD /LPF; UROBILINOGEN,URINE 0.2 mg/dL (0.2 mg/dL)
[2020-12-28] MEDS ORDERED: LEVO750T5 PO (20:19)
[2020-12-28 20:47] VITALS: BP 101/60
[2020-12-28] MEDS ORDERED: levoFLOXacin 250 MG TABLET PO ONE (21:00)
[2020-12-28] MEDS ORDERED: levoFLOXacin 500 MG TABLET PO ONE (21:00)
== END 2020-12-28 20:48 | disposition home or self-care (01) ==
LOC: ER 17:03
DX: R07.89 Other chest pain (principal); N39.0 Urinary tract infection, site not specified; J44.9 Chronic obstructive pulmonary disease, unspecified; E78.5 Hyperlipidemia, unspecified; F17.210 Nicotine dependence, cigarettes, uncomplicated; Z88.5 Allergy status to narcotic agent; Z91.040 Latex allergy status
CPT/HCPCS: 36415; 71045; 80053; 81001; 82553; 83690; 83880; 84484; 85025; 87086; 93005; 96374; 99285; J2405

== ENCOUNTER 2021-01-22 12:28 | Emergency (ER) | payer OTHER ==
[~2021-01-22] VITALS: Ht 162.6 cm; Wt 70.3 kg
[~2021-01-22 12:28] MED LIST changes: +LEVO750T5 PO
[2021-01-22 12:37] VITALS: BP 117/71
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
--- NOTE | 2021-01-22 13:08 | RAD ---
XR EXAM OF ANKLE_RIGHT 3VIEWS History: Lateral ankle pain. Comparison: 01/25/2020 Technique: 3 views of the ankle. Findings: Situs marker indicates left ankle. Diffusely decreased osseous mineralization. No acute fracture is identified. There is a focal cortica l lucency at the posterior calcaneus. The ankle mortise and talar dome are intact. Mild degenerative changes about the ankle. No focal soft tissue swelling. Impression: 1. Situs marker indicates left ankle, possibly mismarked. Order is described for the right ankle. Re commend correlation with site of patient's pain and side imaged. 2. Diffusely decreased osseous mineralization. No definite fractures identified however there is a f ocal cortical lucency in the posterior calcaneus. Correlate for pain referring to the calcaneus. Syeda ot exclude nondisplaced calcaneal fracture. CT may provide improved characterization. Electronically signed by: Eric Modi MD (01/22/2021 1:06 PM) [id number]
--- NOTE | 2021-01-22 14:08 | RAD ---
CT right ankle and hindfoot without contrast HISTORY: Heel pain, abnormal ankle x-ray with lucency of the calcaneus. PQRS statement: CT scans at this facility use dose reduction including either automated exposure cont rol, iterative reconstructions, and /or weight based radiation dosing via mA and kV modification when appropriate to reduce radiation dose to as low as reasonably achievable. FINDINGS: Diffuse bony demineralization likely osteoporosis. There is a axial oblique oriented fractu re across the posterior calcaneus extending into the calcaneus tuberosity near the region of the Achi lles tendon insertion without distraction of the cortex at the tendon insertion, fracture extends ant eriorly and terminates just prior to the posterior calcaneal facet of the talocalcaneal joint, there is mild separation of the trabecular bone with fracture cleft of 3 mm, and mild impaction of the medi al and lateral cortical bone. The remainder of the ankle and hindfoot is intact without additional fr actures. No dislocation. No talus osteochondral lesion evident. No ankylosis or coalition of the talo calcaneal joint. There is mild dorsal foot soft tissue edema. Mild lateral ankle and heel soft tissue edema. IMPRESSION: Diffuse bony demineralization likely osteoporosis. There is an axial oblique fracture of the posterior calcaneus with mildly ill-defined margins which may indicate that this is a subacute tr aumatic fracture, or perhaps an insufficiency fracture given the extensive bony demineralization/oste oporosis present. There is no associated lytic or sclerotic bone lesion. Electronically signed by: Sreekanth Ibarra MD (01/22/2021 2:05 PM) [facility]
[2021-01-22] MEDS ORDERED: ACETAMINOPHEN 500 MG TABLET PO ONE (14:30)
== END 2021-01-22 15:23 | disposition home or self-care (01) ==
LOC: ER 12:28
DX: S92.001A Unspecified fracture of right calcaneus, initial encounter for closed fracture (principal); J44.9 Chronic obstructive pulmonary disease, unspecified; E78.00 Pure hypercholesterolemia, unspecified; I50.9 Heart failure, unspecified; F17.210 Nicotine dependence, cigarettes, uncomplicated; Z88.8 Allergy status to other drugs, medicaments and biological substances; Z88.5 Allergy status to narcotic agent; Z91.040 Latex allergy status; Z88.1 Allergy status to other antibiotic agents; W23.0XXA Caught, crushed, jammed, or pinched between moving objects, initial encounter; Y93.55 Activity, bike riding; Y92.89 Other specified places as the place of occurrence of the external cause; Y99.8 Other external cause status
CPT/HCPCS: 73610; 73700; 99284-25

== ENCOUNTER 2021-01-24 04:36 | Emergency (ER) | payer OTHER ==
[~2021-01-24] VITALS: Ht 160 cm; Wt 71.4 kg
--- NOTE | 2021-01-24 04:52 | PHYS DOC ---
Past History Past Medical History: CHF, COPD, High Cholesterol, Seizure, Vascular Disease Additional Past Medical Histor: MS (RADHA VELAZQUEZ MD) Past Surgical History: Pacemaker Additional Past Surgical Histo: Cath. Medication pump lower rigth abd. (RADHA VELAZQUEZ MD) Smoking: Cigarettes Alcohol Use: None (RADHA VELAZQUEZ MD) Adult General Chief Complaint Chief Complaint: NAUSEA/VOMITING/DIARRHEA HPI HPI Patient is a 60-year-old female with a past medical history significant for CAD, CHF and COPD who presents to the emergency department with a chief complaint of abdominal cramping and distention with nausea and vomiting and decreased appetite with inability to eat today. States she has had a little bit of fluid. States she is Covid vaccinated. Denies any recent traumas, travels, illnesses, fevers, chest pain, shortness of breath, dysuria, hematuria, blood in the stool or diarrhea. States her stools have seemed softer than usual over the last couple of days though. Denies any known ill contacts. (RADHA VELAZQUEZ MD) Review of Systems Review of Systems Review of systems otherwise unremarkable except noted in HPI (RADHA VELAZQUEZ MD) Allergies Allergies Allergies Coded Allergies Type Severity Reaction Last Updated Verified adhesive Allergy Intermediate skin irritation 04/20/13 Yes codeine Allergy Intermediate Nausea/swelling 04/20/13 Yes hydrocodone Allergy Intermediate Nausea/swelling 04/20/13 Yes latex Allergy Intermediate swelling and itching 04/20/13 Yes morphine Allergy Intermediate Lips turned blue/swelling 04/20/13 Yes sumatriptan succinate Allergy Intermediate swelling 04/20/13 Yes chlorpromazine HCl Adverse Reaction Severe Psychotic 08/03/20 Yes diazepam Adverse Reaction Intermediate increased sleepiness 08/03/20 Yes tetracycline Adverse Reaction Intermediate Nail beds turned blue 08/03/20 Yes (RADHA VELAZQUEZ MD) Physical Exam Physical Exam Constitutional: Well developed, well nourished, no acute distress, non-toxic appearance. [] HENT: Normocephalic, atraumatic, bilateral external ears normal, oropharynx dry, no oral exudates, nose normal. [] Eyes: conjunctiva normal, no discharge. [] Neck: Normal range of motion, no tenderness, supple, no stridor. [] Cardiovascular:Heart rate regular rhythm, no murmur [] Lungs & Thorax: Bilateral, global, scant rhonchi Abdomen: Bowel sounds normal, soft, generalized tenderness no distention, no masses, no pulsatile masses. [] Skin: Warm, dry, no erythema, no rash. [] Back: no CVA tenderness. [] Extremities: No tenderness, no cyanosis, no clubbing, ROM intact, no edema. [] Neurologic: Alert and oriented X 3, no focal deficits noted. [] Psychologic: Affect normal, judgement normal, mood normal. [] (RADHA VELAZQUEZ MD) Current Patient Data Vital Signs Vital Signs Date Time Temp Pulse Resp B/P (MAP) Pulse Ox O2 Delivery O2 Flow Rate FiO2 01/24/21 04:38 84 22 133/84 (100) 92 Room Air (RADHA VELAZQUEZ MD) EKG EKG [] (RADHA VELAZQUEZ MD) EKG Sinus rhythm, rate 88, leftward axis, no ST elevation or depression, left anterior fascicular block. (DUNCAN DUQUE DO) Radiology/Procedures Radiology/Procedures [] (RADHA VELAZQUEZ MD) Impressions: XR CHEST 1V Clinical History: Reason: cardiac w/u / Spl. Instructions: / History: Technique: AP view of the chest was obtained at 01/24/2021 4:46 AM. Comparison: December 28, 2020. Findings: The cardiomediastinal silhouette is normal. The pulmonary vasculature is normal. The lungs and pleural margins are clear. The right-sided pacemaker appears normal. Impression: No evidence of an acute cardiopulmonary process. Electronically signed by: Sharon Beck III, MD (01/24/2021 6:07 AM) [facility] DICTATED AND SIGNED BY: SHARON BECK III, MD DATE: 01/24/21 0606 CC: RADHA VELAZQUEZ MD; RONNELL BOLAÑOS ~MTH0 [address], Without Contrast: History: Reason: ABD distension,VOMITING, PAIN: Comparison: None. Procedure: Axial images are obtained of the abdomen and pelvis, without IV or oral contrast. Oral Contrast: No Findings: Evaluation of solid organs is limited without contrast. The urinary bladder is collapsed around a suprapubic catheter and not well evaluated. Densities in the floor the pelvis could be stones in the urinary bladder. The rectal vault is distended with air and stool. There is a left inguinal canal hernia containing a segment of the sigmoid colon. The colon is mostly collapsed. There is a right lateral hernia containing the distal ileum. The remaining small bowel is dilated with air and fluid. There is a suture line in the right colon. The appendix is not seen. There is a filter in the IVC however the IVC is flattened. There is a stent in the left common iliac vein and however the proximal portion of the stent is flattened there is calcification within the stent. Liver: Normal. Spleen: Normal. Pancreas: Normal. Adrenal Glands: Normal. Kidneys: Small cysts on the left. There is no free air or free fluid. There is no lymphadenopathy. There is no pericolonic inflammation identified. There is impaction of superior endplate of the L3 vertebral body with mild loss of stature. Impression: 1. High-grade distal small bowel obstruction appears be secondary to a right lateral hernia containing a short segment of the distal ileum. 2. There is a left anal canal hernia containing a segment of the sigmoid colon however this does not have any CT evidence of obstruction or incarceration. 3. Fecal impaction with distention the rectal vault. 4. There is a IVC filter however the IVC is flattened. This could be secondary to dehydration. 5. There is a left common iliac vein stent however this is not appear patent. 6. L3 vertebral body compression fracture likely old. End impression PQRS Compliance Statement: One or more of the following individualized dose reduction techniques were utilized for this examination: 1. Automated exposure control 2. Adjustment of the mA and/or kV according to patient size 3. Use of iterative reconstruction technique Electronically signed by: Sharon Beck III, MD (01/24/2021 6:04 AM) [facility] DICTATED AND SIGNED BY: SHARON BECK III, MD DATE: 01/24/21 0555 CC: RADHA VELAZQUEZ MD; RONNELL BOLAÑOS ~MTH0 0 (DUNCAN DUQUE DO) Heart Score C/O Chest Pain: No Risk Factors: Risk Factors: DM, Current or recent (<one month) smoker, HTN, HLP, family history of CAD, obesity. Risk Scores: Risk Factors: DM, Current or recent (<one month) smoker, HTN, HLP, family history of CAD, obesity. (RADHA VELAZQUEZ MD) C/O Chest Pain: No (DUNCAN DUQUE DO) Course & Med Decision Making Course & Med Decision Making Patient is a 60-year-old female who presents with a chief complaint of abdominal discomfort, bloating, nausea and vomiting for day Vital signs not concerning. Physical exam noted above. Patient placed on the monitor with IV access established and IV fluid begun. Given pain and nausea medicine. [] (RADHA VELAZQUEZ MD) Course & Med Decision Making The patient has an elevated white count of 15.5. Chest x-ray is negative for acute findings. The patient's CT of the abdomen and pelvis does show a high- grade small bowel obstruction due to a hernia. There are other related and unrelated findings. See official read for more details. I have made the patient aware of this. She understands that surgery is likely. I spoke with Dr. Silvestre, general surgery at [facility] and he has advised we transfer the patient to [place] for admission and likely surgery. I spoke with the hospitalist, Dr. Mckinney and he has accepted the patient for transfer admission at [facility]. She will go by ambulance. I will cover the patient with Zosyn and pain medication as needed. (DUNCAN DUQUE DO) Dragon Disclaimer Dragon Disclaimer This electronic medical record was generated, in whole or in part, using a voice recognition dictation system. (RADHA VELAZQUEZ MD) Departure Departure: Impression: Primary Impression: Abdominal pain Additional Impressions: Nausea & vomiting Small bowel obstruction Disposition: 02 SHORT TERM HOSPITAL Admitting Physician: Hernan Mckinney (DUNCAN DUQUE DO) Condition: GUARDED Referrals: RONNELL BOLAÑOS (PCP) Problem Qualifiers RADHA VELAZQUEZ MD Jan 24, 2021 04:52 DUNCAN DUQUE DO Jan 24, 2021 06:25
[2021-01-24] MEDS ORDERED: IV RINGERS SOLUTION,LACTATED 1,000 ML IV ONE (05:30)
[2021-01-24] MEDS ORDERED: ONDANSETRON PF 4 MG/2 ML VIAL. IVP ONE (05:30)
[2021-01-24] MEDS ORDERED: ACETAMINOPHEN 500 MG TABLET PO ONE (05:30)
[2021-01-24 05:32] LABS: BASO # 0.3 x10^3/uL (0.0-0.2); BASO % 2 % (0-3); EOS # 0.1 x10^3/uL (0.0-0.7); EOS % 1 % (0-3); HEMATOCRIT 37.9 % (36.0-47.0); HEMOGLOBIN 12.3 g/dL (12.0-15.5); LYMPH # 1.8 x10^3/uL (1.0-4.8); LYMPH % 12 % (24-48); MEAN CORPUSCULAR HEMOGLOBIN 31 pg (25-35); MEAN CORPUSCULAR HGB CONC 32 g/dL (31-37); MEAN CORPUSCULAR VOLUME 95 fL (79-100); MONO # 0.5 x10^3/uL (0.0-1.1); MONO % 3 % (0-9); NEUT # 12.8 x10^3uL (1.8-7.7); NEUT % 83 % (31-73); PLATELET COUNT 648 x10^3/uL (140-400); RED BLOOD COUNT 3.99 x10^6/uL (3.50-5.40); RED CELL DISTRIBUTION WIDTH 15.1 % (11.5-14.5); WHITE BLOOD COUNT 15.5 x10^3/uL (4.0-11.0)
[2021-01-24 05:43] LABS: CALCIUM 10.2 mg/dL (8.5-10.1); CREATININE 0.9 mg/dL (0.6-1.0); GFR 63.4; POTASSIUM 4.4 mmol/L (3.5-5.1)
[2021-01-24 06:00] LABS: ALBUMIN 4.2 g/dL (3.4-5.0); TOTAL BILIRUBIN 0.6 mg/dL (0.2-1.0); TOTAL PROTEIN 8.4 g/dL (6.4-8.2)
[2021-01-24] MEDS ORDERED: IPRATRPIUM/ALBUTEROL 0.5/2.5MG 3 ML NEBU. NEB ONE (06:00)
--- NOTE | 2021-01-24 06:06 | RAD ---
Abdominal and Pelvis CT, Without Contrast: History: Reason: ABD distension,VOMITING, PAIN: Comparison: None. Procedure: Axial images are obtained of the abdomen and pelvis, without IV or oral contrast. Oral Contrast: No Findings: Evaluation of solid organs is limited without contrast. The urinary bladder is collapsed around a suprapubic catheter and not well evaluated. Densities in th e floor the pelvis could be stones in the urinary bladder. The rectal vault is distended with air and stool. There is a left inguinal canal hernia containing a segment of the sigmoid colon. The colon is mostly collapsed. There is a right lateral hernia containi ng the distal ileum. The remaining small bowel is dilated with air and fluid. There is a suture line in the right colon. The appendix is not seen. There is a filter in the IVC however the IVC is flatten ed. There is a stent in the left common iliac vein and however the proximal portion of the stent is f lattened there is calcification within the stent. Liver: Normal. Spleen: Normal. Pancreas: Normal. Adrenal Glands: Normal. Kidneys: Small cysts on the left. There is no free air or free fluid. There is no lymphadenopathy. There is no pericolonic inflammation identified. There is impaction of superior endplate of the L3 vertebral body with mild loss of stature. Impression: 1. High-grade distal small bowel obstruction appears be secondary to a right lateral hernia containin g a short segment of the distal ileum. 2. There is a left anal canal hernia containing a segment of the sigmoid colon however this does not have any CT evidence of obstruction or incarceration. 3. Fecal impaction with distention the rectal vault. 4. There is a IVC filter however the IVC is flattened. This could be secondary to dehydration. 5. There is a left common iliac vein stent however this is not appear patent. 6. L3 vertebral body compression fracture likely old. End impression PQRS Compliance Statement: One or more of the following individualized dose reduction techniques were utilized for this examinat ion: 1. Automated exposure control 2. Adjustment of the mA and/or kV according to patient size 3. Use of iterative reconstruction technique Electronically signed by: Miguel Shaw III, MD (01/24/2021 6:04 AM) [facility]
--- NOTE | 2021-01-24 06:09 | RAD ---
XR CHEST 1V Clinical History: Reason: cardiac w/u / Spl. Instructions: / History: Technique: AP view of the chest was obtained at 01/24/2021 4:46 AM. Comparison: December 28, 2020. Findings: The cardiomediastinal silhouette is normal. The pulmonary vasculature is normal. The lungs and pleura l margins are clear. The right-sided pacemaker appears normal. Impression: No evidence of an acute cardiopulmonary process. Electronically signed by: Miguel Shaw III, MD (01/24/2021 6:07 AM) [facility]
[2021-01-24 06:17] LABS: BACTERIA,URINE MOD /HPF (0-FEW); BILIRUBIN,URINE NEG (NEG); CLARITY,URINE CLEAR; COLOR,URINE YELLOW; GLUCOSE,URINE NEG (NEG); NITRITE,URINE NEG (NEG); UROBILINOGEN,URINE 0.2 mg/dL (0.2 mg/dL)
[2021-01-24 06:18] LABS: HYALINE CASTS, URINE FEW /HPF; SQUAMOUS EPITHELIAL CELL,UR MOD /LPF
[2021-01-24] MEDS ORDERED: PIPERACILLIN/TAZOBACTAM 3.375 GM VIAL IV ONE (06:38)
[2021-01-24 06:56] LABS: % EOS 1 % (0-5); % LYMPHS 12 % (24-48); % MONOS 2 % (0-10); % SEGS 85 % (35-66); PLT ESTIMATE INCREASED (ADEQUATE)
[2021-01-24 06:57] LABS: OVALOCYTES OCC
[2021-01-24] MEDS ORDERED: PIPERACILLIN/TAZOBACTAM 3.375 GM in IV NORMAL SALINE 50ML 50 ML IV ONE (07:00)
--- NOTE | 2021-01-24 07:08 | EKG ---
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
[2021-01-24 10:18] VITALS: BP 121/53
== END 2021-01-24 10:31 | disposition short-term general hospital (02) ==
LOC: ER 04:36
DX: K56.609 Unspecified intestinal obstruction, unspecified as to partial versus complete obstruction (principal); R11.2 Nausea with vomiting, unspecified; Z20.822 Contact with and (suspected) exposure to COVID-19
CPT/HCPCS: 71045; 74176; 80053; 81001; 82803; 83605; 84484; 85007; 85025; 87040; 87086; 87426; 93005; 94640; 96361; 96365; 96375; 99285; C9803; J2405; J2543; J3010; J7120; U0003; 87077